=== PATIENT | female | born 1990 | race Caucasian/White ===

== ENCOUNTER → 2019-03-06 | Emergency (ER) | payer OTHER ==
[~2019-03-06] VITALS: Wt 64.0 kg
[~2019-03-06] MED LIST: CYCL10TA7 PO; IBUP-1542 PO; KETOROLAC 30 MG INJ IM STA; PREN-39
[2019-03-06 15:09] VITALS: BP 123/69; PULSE 78; RESP 18
--- NOTE | 2019-03-06 16:42 | ERD ---
ER Documentation Chief Complaint Chief Complaint R SIDED BACK PAIN SINCE YESTERDAY HPI 29-year-old female presented to the ED for right-sided back pain since yesterday. Patient denies any traumatic injury. Patient states she was driving her car and just had lower back pain. Patient states this is never happened to her before. Patient denies any urinary incontinence. Patient is presenting afebrile and states she does not use IV drugs. Patient is not a diabetic. Patient states she has no past medical history. Patient states she did have surgery on her left wrist several years ago and had a plate placed in. Patient states the pain is about a 6 out of 10 and is only an issue when she is ambulating. ROS All systems reviewed and are negative except as per history of present illness. Medications Home Meds Active Scripts Cyclobenzaprine Hcl* (Cyclobenzaprine Hcl*) 10 Mg Tablet, 10 MG PO TID, #15 TAB Prov:MELQUIADES PIERCE PA-C 03/06/19 Ibuprofen* (Motrin*) 600 Mg Tab, 600 MG PO Q6, #30 TAB Prov:MELQUIADES PIERCE PA-C 03/06/19 Reported Medications Vits W-Ca,Fe,Fa(<1MG) ( Vitamins) 1 Tab Tablet 06/29/10 Allergies Allergies: Coded Allergies: No Known Allergies (Verified Allergy, Mild, 06/29/10) PMhx/Soc Medical and Surgical Hx: pt denies Medical Hx, pt denies Surgical Hx History of Surgery: No Anesthesia Reaction: No Hx Neurological Disorder: No Hx Respiratory Disorders: No Hx Cardiac Disorders: No Hx Psychiatric Problems: No Hx Miscellaneous Medical Probl: No Hx Alcohol Use: No Hx Substance Use: No Hx Tobacco Use: No Smoking Status: Never smoker FmHx Family History: No diabetes, No coronary disease, No other Physical Exam Vitals Vital Signs Date Temp Pulse Resp B/P (MAP) Pulse Ox O2 O2 Flow FiO2 Time Delivery Rate 03/06/19 98.0 78 18 123/69 99 15:09 (87) Physical Exam Const: Mild distress Neck: Full range of motion. No meningismus. Resp: Clear to auscultation bilaterally Cardio: Regular rate and rhythm, no murmurs Abd: Soft, non tender, non distended. Normal bowel sounds Skin: No petechiae or rashes Back: No midline or flank tenderness, straight leg raise provokes right-sided SI pain with no sciatica. Ext: No cyanosis, or edema t Results 24 hrs Laboratory Tests Test 03/06/19 16:16 03/06/19 16:18 POC Beta HCG, Qualitative NEGATIVE Bedside Urine pH (LAB) 6.5 Bedside Urine Protein (LAB) Negative Bedside Urine Glucose (UA) Negative Bedside Urine Ketones (LAB) Negative Bedside Urine Blood Negative Bedside Urine Nitrite (LAB) Negative Bedside Urine Leukocyte Esterase (L Negative Current Medications Medications Dose Sig/Hailey Start Time Status Last (Trade) Ordered Route PRN Stop Time Admin Dose Reason Admin Ketorolac 30 mg ONCE STAT 03/06/19 DC 03/06/19 Tromethamine IM 15:50 16:17 (Toradol) 03/06/19 15:51 Procedures/MDM ED course: The patient was stable throughout the ED course. The patient and/or family informed of laboratory and diagnostic imaging results throughout the ED course. Medications given in ER: Toradol Cyclobenzaprine Patient tolerated medication well with no adverse reactions. Patient reported improvement in pain. Medical decision makin-year-old female presented to ED for nontraumatic back pain. She denies IV drug use. Patient denies dysuria. Physical exam was only remarkable for right sided SI pain when I did a straight leg examination. Patient's UA indicated the patient was not and does not have a UTI. At this time I have low suspicion for low suspicion for cauda equine syndrome, spinal fractures, epidural abscess, spinal metastases, osteomyelitis, aortic dissection, ruptured or leaking AA, DJD, sciatica, lumbar strain, muscle spasm, pyelonephritis or nephrolithiasis. On reevaluation 30 minutes of Toradol was given the patient states the back pain has improved. Advised patient she needs a follow-up with her primary care provider regarding this visit. Patient is in agreement treatment plan. Advised patient symptoms worsen return to ER immediately. Prescription for home: Ibuprofen Cyclobenzaprine I have discussed with the patient proper use and common side effects to expert with the medication . I advised the patient/family to speak with the pharmacist dispensing the medication to be advised of any potential drug int eractions with other medication or supplements they may be taking. Discharge: At this time, patient is stable for discharge and outpatient management. I have instructed the patient to follow-up with his\her primary care physician in 1 to 2 days. I have discussed with the patient the possibility of needing to see a specialist for further work-up and imaging studies if symptoms persist. I have instructed the patient to promptly return to the ER for any new or worsening symptoms including increased pain, fever, nausea, vomiting, weakness or LOC. The patient and\or family expressed understanding of and agreement with this plan. All questions were answered. Home care instructions were provided. Disclaimer: Inadvertent spelling and grammatical errors are likely due to EHR\dictation software use and do not reflect on the overall quality of patient care. Also, please note that the electronic time recorded on the note does not necessarily reflect the actual time of the patient encounter. Departure Diagnosis: Primary Impression: Back pain Back pain location: low back pain Chronicity: unspecified Back pain laterality: unspecified Sciatica presence: without sciatica Qualified Codes: M54.5 - Low back pain Condition: Stable Patient Instructions: Back Pain (Acute Or Chronic) Referrals: [facility] YOU HAVE RECEIVED A MEDICAL SCREENING EXAM AND THE RESULTS INDICATE THAT YOU DO NOT HAVE A CONDITION THAT REQUIRES URGENT TREATMENT IN THE EMERGENCY DEPARTMENT. FURTHER EVALUATION AND TREATMENT OF YOUR CONDITION CAN WAIT UNTIL YOU ARE SEEN IN YOUR DOCTORS OFFICE WITHIN THE NEXT 1-2 DAYS. IT IS YOUR RESPONSIBILITY TO MAKE AN APPOINTMENT FOR FOLOW-UP CARE. IF YOU HAVE A PRIMARY DOCTOR --you should call your primary doctor and schedule an appointment IF YOU DO NOT HAVE A PRIMARY DOCTOR YOU CAN CALL OUR PHYSICIAN REFERRAL HOTLINE AT IF YOU CAN NOT AFFORD TO SEE A PHYSICIAN YOU CAN CHOSE FROM THE FOLLOWING [facility] [address] [facility]. [facility] [address] [facility]. [facility] [address] [facility]. [facility] [address] [facility]. [facility] [address] [facility]. [facility]. [address] [facility]. [facility] YOU HAVE RECEIVED A MEDICAL SCREENING EXAM AND THE RESULTS INDICATE THAT YOU DO NOT HAVE A CONDITION THAT REQUIRES URGENT TREATMENT IN THE EMERGENCY DEPARTMENT. FURTHER EVALUATION AND TREATMENT OF YOUR CONDITION CAN WAIT UNTIL YOU ARE SEEN IN YOUR DOCTORS OFFICE WITHIN THE NEXT 1-2 DAYS. IT IS YOUR RESPONSIBILITY TO MAKE AN APPOINTMENT FOR FOLOW-UP CARE. IF YOU HAVE A PRIMARY DOCTOR --you should call your primary doctor and schedule and appointment IF YOU DO NOT HAVE A PRIMARY DOCTOR YOU CAN CALL OUR PHYSICIAN REFERRAL HOTLINE AT . IF YOU CAN NOT AFFORD TO SEE A PHYSICIAN YOU CAN CHOSE FROM THE FOLLOWING [facility] INSTITUTIONS: [facility] [address] [place] [address] [facility] [address] [place] [address] [facility] [address] [place] [address] Additional Instructions: Call your primary care doctor TOMORROW for an appointment during the next 1-2 days.See the doctor sooner or return here if your condition worsens before your appointment time. MELQUIADES PIERCE PA-C Mar 06, 2019 16:42
== END | disposition home or self-care (01) ==
LOC: FTE 14:43
DX: M54.5 Low back pain (principal)
CPT/HCPCS: 81003; 81025; 96372; J1885; Z7502